=== PATIENT | female | born 1990 | race Caucasian/White ===

== ENCOUNTER 2017-10-28 01:21 | Emergency (ER) | payer OTHER ==
[~2017-10-28] VITALS: Ht 157.5 cm; Wt 54.3 kg
[2017-10-28] MEDS ORDERED: PREDNISONE10 MG PO (02:30)
[2017-10-28] MEDS ORDERED: EPIPEN ADU0.3 MG/0.3 IM (02:30)
[2017-10-28 03:23] VITALS: BP 104/79
== END 2017-10-28 03:23 | disposition home or self-care (01) ==
LOC: EME 01:21
DX: L50.0 Allergic urticaria (principal)
CPT/HCPCS: 99281; 99284; J1100